=== PATIENT | male | born 1950 | race Caucasian/White ===

== ENCOUNTER → 2017-04-30 | Outpatient (RCR) | payer OTHER | END | disposition home or self-care (01) | LOC: PTY 14:30 | DX: R26.89 Other abnormalities of gait and mobility (principal); M62.81 Muscle weakness (generalized) ==

== ENCOUNTER 2017-05-08 14:30 | Outpatient (RCR) | payer OTHER | END 2017-05-28 | disposition home or self-care (01) | LOC: PTY 14:30 | DX: R26.89 Other abnormalities of gait and mobility (principal); M62.81 Muscle weakness (generalized) ==

== ENCOUNTER 2017-06-09 13:45 | Outpatient (RCR) | payer OTHER | END 2017-06-28 | disposition home or self-care (01) | LOC: PTY 13:45 | DX: R26.89 Other abnormalities of gait and mobility (principal); M62.81 Muscle weakness (generalized) ==

== ENCOUNTER 2017-08-01 15:15 | Outpatient (RCR) | payer OTHER | END 2017-08-28 | disposition home or self-care (01) | LOC: PTY 15:15 | DX: R26.89 Other abnormalities of gait and mobility (principal); M62.81 Muscle weakness (generalized) ==